=== PATIENT | male | born 1960 | race Caucasian/White ===

== ENCOUNTER 2021-02-08 23:12 | Emergency (ER) | payer BC ==
[2021-02-08 23:55] LABS: HEMOGLOBIN 10.6 gm/dl (12.3-15.3); RED BLOOD COUNT 4.85 M/UL (4.00-5.10); WHITE BLOOD COUNT 4.3 K/UL (4.5-11.0)
[2021-02-09 00:14] LABS: BUN/CREATININE RATIO 18 (0-10)
[2021-02-10] MEDS ORDERED: ZOFRAN4 MG PO (15:36)
== END 2021-02-09 00:46 | disposition home or self-care (01) ==
LOC: EDSEX 23:12 → ER1 23:12
PROVIDERS: Physician Assistant Medical
DX: U07.1 COVID-19 (principal)
CPT/HCPCS: 71045; 80053; 84484; 85025; 93005; 99285

== ENCOUNTER 2021-02-10 11:21 | Emergency (ER) | payer BC ==
[2021-02-10] MEDS ORDERED: ZOFRAN4 MG PO (15:36)
== END 2021-02-10 16:15 | disposition home or self-care (01) ==
LOC: ER1 11:21
DX: U07.1 COVID-19 (principal)
CPT/HCPCS: 71045; 99283